=== PATIENT | female | born 1950 | race Caucasian/White ===

== ENCOUNTER 2019-07-31 11:25 | Outpatient (CLI) | payer MEDICARE ==
--- NOTE | 2019-07-31 12:59 | MMO ---
Bilateral MAMMO Bilat Screen [facility]. CLINICAL HISTORY: Patient is 69 years old and is seen for screening. The patient has no personal history of cancer. VIEWS: The views performed were: bilateral craniocaudal with tomosynthesis and bilateral mediolateral oblique with tomosynthesis. FILMS COMPARED: The present examination has been compared to prior imaging studies performed at [facility] on 07/05/2014, 07/11/2015, 07/23/2016 and 08/02/2017. This study has been interpreted with the assistance of computer-aided detection. MAMMOGRAM FINDINGS: There are scattered fibroglandular densities. There are no suspicious masses, suspicious calcifications, or new areas of architectural distortion. IMPRESSION: THERE IS NO MAMMOGRAPHIC EVIDENCE OF MALIGNANCY. A ROUTINE FOLLOW-UP MAMMOGRAM IN 1 YEAR IS RECOMMENDED. THE RESULTS OF THIS EXAM WERE SENT TO THE PATIENT. ACR BI-RADS Category 1 - Negative MAMMOGRAPHY NOTE: 1. A negative mammogram report should not delay a biopsy if a dominant of clinically suspicious mass is present. 2. Approximately 10% to 15% of breast cancers are not detected by mammography. 3. Adenosis and dense breasts may obscure an underlying neoplasm. Reported by: MICHAEL KEN MD Electonically Signed: [id number]
== END 2019-07-31 11:26 | disposition home or self-care (01) ==
LOC: BICMAMMO 11:25
PROVIDERS: ATTEND Family Medicine
DX: Z12.31 Encounter for screening mammogram for malignant neoplasm of breast (principal)
CPT/HCPCS: 77063; 77067

== ENCOUNTER 2020-09-17 08:02 | Outpatient (CLI) | payer MEDICARE ==
--- NOTE | 2020-09-17 08:38 | BD ---
DEXA BONE DENSITY EXAM: HISTORY: A 70-year-old postmenopausal female for screening. COMPARISON: 08/02/2017. FINDINGS: Lumbar Spine: BMD (g/cm2) L1 0.800 T-Score: -1.7 L2 0.829 T-Score: -1.8 L3 0.907 T-Score: -1.6 L4 0.914 T-Score: -1.3 L1-L4 0.867 T-Score: -1.6 Femoral Neck: 0.518 T-Score: -3.0 Total Femur: 0.746 T-Score: -1.6 Impression: Osteoporosis. POS: EAA
--- NOTE | 2020-09-17 11:18 | MMO ---
Bilateral MAMMO Bilat Screen [facility]. CLINICAL HISTORY: Patient is 70 years old and is seen for screening. The patient has no family history of breast cancer. The patient has no personal history of cancer. VIEWS: The views performed were: bilateral craniocaudal with tomosynthesis and bilateral mediolateral oblique with tomosynthesis. FILMS COMPARED: The present examination has been compared to prior imaging studies performed at [facility] on 07/11/2015, 07/23/2016, 08/02/2017 and 07/31/2019. This study has been interpreted with the assistance of computer-aided detection. MAMMOGRAM FINDINGS: There are scattered fibroglandular densities. There are no suspicious masses, suspicious calcifications, or new areas of architectural distortion. IMPRESSION: THERE IS NO MAMMOGRAPHIC EVIDENCE OF MALIGNANCY. A ROUTINE FOLLOW-UP MAMMOGRAM IN 1 YEAR IS RECOMMENDED. THE RESULTS OF THIS EXAM WERE SENT TO THE PATIENT. ACR BI-RADS Category 1 - Negative MAMMOGRAPHY NOTE: 1. A negative mammogram report should not delay a biopsy if a dominant of clinically suspicious mass is present. 2. Approximately 10% to 15% of breast cancers are not detected by mammography. 3. Adenosis and dense breasts may obscure an underlying neoplasm. Reported by: MICHAEL SHEPHERD MD Electonically Signed: [id number]
== END 2020-09-17 08:03 | disposition home or self-care (01) ==
LOC: BICMAMMO 08:02
PROVIDERS: ATTEND Family Medicine
DX: Z12.31 Encounter for screening mammogram for malignant neoplasm of breast (principal); M81.0 Age-related osteoporosis without current pathological fracture
CPT/HCPCS: 77063; 77067; 77080

== ENCOUNTER 2021-09-18 08:55 | Outpatient (CLI) | payer MEDICARE | END 2021-09-18 08:56 | disposition home or self-care (01) | LOC: BICMAMMO 08:55 | PROVIDERS: ATTEND Family Medicine | DX: Z12.31 Encounter for screening mammogram for malignant neoplasm of breast (principal) | CPT/HCPCS: 77063; 77067 ==

== ENCOUNTER 2022-05-03 06:54 | Outpatient (CLI) | payer MEDICARE, OTHER | END 2022-05-03 06:55 | disposition home or self-care (01) | LOC: BICULT 06:54 | PROVIDERS: ATTEND Family Medicine | DX: Z15.09 Genetic susceptibility to other malignant neoplasm (principal) | CPT/HCPCS: 76770 ==

== ENCOUNTER 2022-11-04 08:26 | Outpatient (CLI) | payer MEDICARE | END 2022-11-04 08:27 | disposition home or self-care (01) | LOC: BICMAMMO 08:26 | PROVIDERS: ATTEND Family Medicine | DX: Z12.31 Encounter for screening mammogram for malignant neoplasm of breast (principal) | CPT/HCPCS: 77063; 77067 ==

== ENCOUNTER 2023-11-28 09:54 | Outpatient (CLI) | payer MEDICARE, OTHER | END 2023-11-28 09:55 | disposition home or self-care (01) | LOC: BICMAMMO 09:54 | PROVIDERS: ATTEND Family Medicine | DX: Z12.31 Encounter for screening mammogram for malignant neoplasm of breast (principal) | CPT/HCPCS: 77063; 77067 ==

== ENCOUNTER 2024-08-15 09:10 | Outpatient (CLI) | payer MEDICARE, OTHER ==
[2024-08-15] MEDS ORDERED: Magnevist 469MG/ML 20 ML VIAL ONE (10:42)
== END 2024-08-15 09:11 | disposition home or self-care (01) ==
LOC: MRI 09:10
PROVIDERS: ATTEND Family Medicine
DX: R51.9 Headache, unspecified (principal); J34.89 Other specified disorders of nose and nasal sinuses
CPT/HCPCS: 70553; 76376

== ENCOUNTER 2024-09-19 11:44 | Outpatient (CLI) | payer MEDICARE, OTHER | END 2024-09-19 11:45 | disposition home or self-care (01) | LOC: BICULT 11:44 | PROVIDERS: ATTEND Family Medicine | DX: M81.0 Age-related osteoporosis without current pathological fracture (principal); M85.88 Other specified disorders of bone density and structure, other site; Z80.51 Family history of malignant neoplasm of kidney | CPT/HCPCS: 76770; 77080 ==

== ENCOUNTER 2024-12-03 10:13 | Outpatient (CLI) | payer MEDICARE, OTHER | END 2024-12-03 10:14 | disposition home or self-care (01) | LOC: BICMAMMO 10:13 | PROVIDERS: ATTEND Family Medicine | DX: Z12.31 Encounter for screening mammogram for malignant neoplasm of breast (principal) | CPT/HCPCS: 77063; 77067 ==

== ENCOUNTER 2025-09-19 10:00 | Outpatient (CLI) | payer MEDICARE, OTHER | END 2025-09-19 10:01 | disposition home or self-care (01) | LOC: ULT 10:00 | PROVIDERS: ATTEND Family Medicine | DX: Z01.89 Encounter for other specified special examinations (principal); Z80.51 Family history of malignant neoplasm of kidney | CPT/HCPCS: 76770 ==